=== PATIENT | female | born 1945 | race Caucasian/White ===

== ENCOUNTER 2017-06-19 16:02 | Inpatient (IN) | payer MEDICARE, OTHER ==
[~2017-06-19] VITALS: Ht 167.6 cm; Wt 79.4 kg
[2017-06-19] MEDS ORDERED: PROCHLORPERAZINE EDISYLATE 10 MG/2 ML VIAL IV ONE (16:15)
[2017-06-19] MEDS ORDERED: SIMV20TA6 PO (16:17)
[2017-06-19] MEDS ORDERED: MELO15TA13 PO (16:17)
[2017-06-19] MEDS ORDERED: ESCI10TA PO (16:17)
[2017-06-19] MEDS ORDERED: TRAM50TA2 PO (16:17)
[2017-06-19] MEDS ORDERED: FAMO-132 PO (16:17)
[2017-06-19] MEDS ORDERED: PROCHLORPERAZINE EDISYLATE 10 MG/2 ML VIAL ONE (16:50)
[2017-06-19 16:57] LABS: BASOPHILS % (AUTO) 0.7 % (0.0-2.0); EOSINOPHILS # (AUTO) 0.4 K/uL (0.0-0.7); EOSINOPHILS % (AUTO) 6.2 % (0.0-7.0); HEMATOCRIT 40.2 % (37-47); HEMOGLOBIN 13.1 G/DL (12.0-16.0); LYMPHOCYTES # (AUTO) 2.1 K/UL (0.8-4.8); LYMPHOCYTES % (AUTO) 36.9 % (20.5-51.5); MEAN CORPUSCULAR HEMOGLOBIN 29.4 UUG (27.0-31.0); MEAN CORPUSCULAR HGB CONC 33 g/dL (32.0-37.0); MEAN CORPUSCULAR VOLUME 90.4 FL (81.0-99.0); MONOCYTES # (AUTO) 0.4 K/UL (0.1-1.30); NEUTROPHILS # (AUTO) 2.9 K/UL (1.8-8.9); NEUTROPHILS % (AUTO) 49.2 % (38.5-71.5); PLATELET COUNT (AUTO) 242 K/UL (150-450); RED BLOOD CELL COUNT(AUTO) 4.44 MIL/UL (4.2-5.4); WHITE BLOOD COUNT (AUTO) 5.8 K/UL (4.0-11.2)
[2017-06-19 16:58] LABS: CARBON DIOXIDE 30 mmol/L (21-32); CHLORIDE 101 mmol/L (98-107); CREATININE 0.8 mg/dL (0.6-1.3); GLUCOSE 117 mg/dL (74-106); POTASSIUM 3.8 mmol/L (3.5-5.1); UREA NITROGEN, BLOOD 24 mg/dL (7-18)
[2017-06-19 17:04] LABS: ALANINE AMINOTRANSFERASE 54 U/L (14-59); ALKALINE PHOSPHATASE 44 U/L (50-136); ASPARTATE AMINOTRANSFERASE 36 U/L (15-37); BILIRUBIN,DIRECT 0.1 mg/dL (0.0-0.2); BILIRUBIN,TOTAL 0.4 mg/dL (0.2-1.0); TOTAL PROTEIN, SERUM 7.7 g/dL (6.4-8.2)
--- NOTE | 2017-06-19 17:22 | NUR ---
PATIENT WA SEEN BY FOR C/O RODRIGUEZ. LABS SENT TO LAB. IV PLACED, MEDS GIVEN. AWAITING TEST RESULTS.
--- NOTE | 2017-06-19 17:40 | NUR ---
PATIENT AMBULATED TO BATHROOM IN STEADY GAIT AND WAS ABLE TO VOID URINE.
[2017-06-19] MEDS ORDERED: IV NORMAL SALINE 250 ML IV ONE (17:43)
[2017-06-19] MEDS ORDERED: IOHEXOL 350 100 ML INFUS..BTL ONE (17:43)
[2017-06-19] MEDS ORDERED: NORMAL SALINE FLUSH 10 ML DISP.SYRIN ONE (17:43)
--- NOTE | 2017-06-19 19:10 | NUR ---
report received from dayshift nurse, pt is alert, oriented x 4, no resp distress noted or reported upon assessment...
--- NOTE | 2017-06-19 20:34 | NUR ---
Pt. admitted to Tele , under care of Dr. Beatris Velasco, Belongs List completed, pt is alert, oriented x 4, no resp distress upon transfer assessment...
[2017-06-19 20:49] VITALS: BP 146/93
[2017-06-19] MEDS ORDERED: ACETAMINOPHEN 325 MG TABLET PO PRN (21:30)
[2017-06-19] MEDS ORDERED: TEMAZEPAM 15 MG CAPSULE PO PRN (21:30)
[2017-06-19] MEDS ORDERED: TRAMADOL HCL 50 MG TABLET PO PRN (21:30)
[2017-06-19] MEDS ORDERED: ONDANSETRON 4 MG/2 ML VIAL IV PRN (21:30)
[2017-06-19] MEDS ORDERED: MAGNESIUM HYDROXIDE 30 ML LIQUID UDC PO PRN (21:30)
[2017-06-19] MEDS ORDERED: HYDROCODONE/APAP 5-325MG TABLET PO PRN (21:30)
[2017-06-19] MEDS ORDERED: ASPIRIN EC 325 MG TABLET.DR PO ONE ×2 (22:15→22:40)
[2017-06-19] MEDS ORDERED: ASPIRIN 325 MG TABLET ONE (22:32)
[2017-06-19 23:44] VITALS: BP 126/72
--- NOTE | 2017-06-20 00:27 | NUR ---
RECEIVED PATIENT FROM ED WITH ADMITTING DIAGNOSIS OF TIA. PER PATIENT SHE HAD HEADACHE AND SLURRED SPEECH AT HOME. ALERT AND ORIENTED X4. RN CELENA DID NIHSS AT BEDSIDE SHOWED NO NEUROLOGICAL DEFICIT. NOTED DR. MALLORY FOR ADMISSION. GIVEN ONE DOSE OF ASPIRIN ORDERED. STARTED ON TELE MONITORING SHOWING SR. VS ARE STABLE. ORIENTED PATIENT ABOUT THE ROOM EQUIPMENT. ADVISED ON FALL PRECAUTION. OTHERWISE PATIENT IS SLEEPING AT THIS TIME. WILL CONT TO MONITOR.
[2017-06-20 04:00] VITALS: BP 130/80
--- NOTE | 2017-06-20 05:31 | NUR ---
PATIENT IS SLEEPING COMFORTABLY. NO NEUROLOGIC DEFICIENCY UP TO THIS TIME. VS ARE STABLE BP 130/80.
[2017-06-20 06:03] LABS: BASOPHILS % (AUTO) 0.6 % (0.0-2.0); EOSINOPHILS # (AUTO) 0.4 K/uL (0.0-0.7); EOSINOPHILS % (AUTO) 6.7 % (0.0-7.0); HEMATOCRIT 38.2 % (37-47); HEMOGLOBIN 12.7 G/DL (12.0-16.0); LYMPHOCYTES % (AUTO) 32.2 % (20.5-51.5); MEAN CORPUSCULAR HEMOGLOBIN 30.1 UUG (27.0-31.0); MEAN CORPUSCULAR HGB CONC 33 g/dL (32.0-37.0); MEAN CORPUSCULAR VOLUME 90.4 FL (81.0-99.0); MONOCYTES # (AUTO) 0.5 K/UL (0.1-1.30); MONOCYTES % (AUTO) 7.4 % (0.0-11.0); NEUTROPHILS # (AUTO) 3.2 K/UL (1.8-8.9); NEUTROPHILS % (AUTO) 53.1 % (38.5-71.5); PLATELET COUNT (AUTO) 230 K/UL (150-450); RED BLOOD CELL COUNT(AUTO) 4.23 MIL/UL (4.2-5.4); WHITE BLOOD COUNT (AUTO) 6.2 K/UL (4.0-11.2)
[2017-06-20 06:18] LABS: ALANINE AMINOTRANSFERASE 51 U/L (14-59); ALKALINE PHOSPHATASE 40 U/L (50-136); ASPARTATE AMINOTRANSFERASE 36 U/L (15-37); BILIRUBIN,TOTAL 0.5 mg/dL (0.2-1.0); CARBON DIOXIDE 33 mmol/L (21-32); CHLORIDE 105 mmol/L (98-107); CHOLESTEROL 158 mg/dL (<200); CREATININE 0.6 mg/dL (0.6-1.3); GLUCOSE 105 mg/dL (74-106); HDL CHOLESTEROL 54 mg/dL (40-60); MAGNESIUM 1.9 mg/dL (1.8-2.4); PHOSPHOROUS 4.5 mg/dL (2.5-4.9); POTASSIUM 3.9 mmol/L (3.5-5.1); TOTAL PROTEIN, SERUM 7.1 g/dL (6.4-8.2); TRIGLYCERIDES 95 MG/DL (30-150); UREA NITROGEN, BLOOD 14 mg/dL (7-18)
[2017-06-20 06:51] LABS: THYROID STIMULATING HORMONE 1.836 mIU/mL (0.358-3.740)
[2017-06-20] MEDS ORDERED: ASPIRIN EC 325 MG TABLET.DR PO SCH (09:00)
[2017-06-20] MEDS ORDERED: ESCITALOPRAM OXALATE 10 MG TABLET PO SCH (09:00)
[2017-06-20] MEDS ORDERED: FAMOTIDINE 20 MG TABLET PO SCH (09:00)
[2017-06-20] MEDS ORDERED: DIAZEPAM 5 MG TABLET PO PRN (09:45)
[2017-06-20] MEDS ORDERED: MELOXICAM 7.5 MG TABLET PO SCH (09:47)
--- NOTE | 2017-06-20 11:05 | NUR ---
PT OFF FLOOR, TAKEN TO [facility] FOR MRI. VS STABLE.
[2017-06-20 13:20] VITALS: BP 136/92
--- NOTE | 2017-06-20 13:20 | NUR ---
PT RETURNED TO M/S UNIT, PLACED BACK ON TELE, AND VITAL SIGNS STABLE. PT SITTING UP COMFORTABLY EATING LUNCH. ALL COMFORT AND SAFETY MEASURES PROVIDED. WILL CONTINUE TO MONITOR.
[2017-06-20 15:55] VITALS: BP 111/63
[2017-06-20 16:04] VITALS: BP 111/63
--- NOTE | 2017-06-20 18:59 | NUR ---
PT SITTING COMFORTABLY AWAKE IN BED. V/S WNL AND NO S/S OF DISTRESS NOTED AT THIS TIME. ALL SAFETY MEASURES IMPLEMENTED. CALL LIGHT WITHIN REACH. DISCHARGE ORDERS RECEIVED.
[2017-06-20] MEDS ORDERED: ASPI-618 PO (19:03)
--- NOTE | 2017-06-20 19:30 | NUR ---
PT RECEIVED SITTING AT THE EDGE OF BED. A/OX4. V/S STABLE. IN NO ACUTE DISTRESS. PT DOES NOT C/O PAIN AT THIS TIME. SAFETY MEASURES IMPLEMENTED. CALL LIGHT WITHIN REACH. PT AWAITING DISCHARGE.
[2017-06-20 19:44] VITALS: BP 129/85
[2017-06-20] MEDS ORDERED: SIMVASTATIN 20 MG TABLET PO SCH (21:00)
--- NOTE | 2017-06-20 21:00 | NUR ---
PT IN STABLE CONDITION. IV D/C. D/C INSTRUCTIONS SIGNED. PT PROVIDED WITH D/C INSTRUCTION COPY. BELONGINGS LIST SIGNED.
== END 2017-06-20 21:15 | disposition home or self-care (01) | DRG 69 ==
LOC: ER 16:03 → TELE 20:07
PROVIDERS: ADMIT Internal Medicine; ATTEND Internal Medicine
DX: G45.9 Transient cerebral ischemic attack, unspecified (principal); E86.0 Dehydration; I67.2 Cerebral atherosclerosis; H26.9 Unspecified cataract; E78.5 Hyperlipidemia, unspecified; M19.90 Unspecified osteoarthritis, unspecified site; Z79.899 Other long term (current) drug therapy; E66.9 Obesity, unspecified; Z68.28 Body mass index [BMI] 28.0-28.9, adult; K21.9 Gastro-esophageal reflux disease without esophagitis; F32.9 Major depressive disorder, single episode, unspecified
CPT/HCPCS: 36415; 70030-TC; 70496; 70551; 71010; 83735; 84100; 84443; 85025; 85730; 93005; 93307; 93880; A4663; J3490

== ENCOUNTER 2022-12-21 07:23 | Outpatient (CLI) | payer MEDICARE, OTHER ==
[~2022-12-21 07:23] MED LIST: ASPI-618 PO; ESCI10TA PO; FAMO-132 PO; MELO15TA13 PO; SIMV-46 PO; TRAM50TA2 PO
== END 2022-12-21 23:59 | disposition home or self-care (01) ==
LOC: LAB 07:23
PROVIDERS: ATTEND Obstetrics & Gynecology
DX: Z01.812 Encounter for preprocedural laboratory examination (principal); Z20.822 Contact with and (suspected) exposure to COVID-19

== ENCOUNTER 2022-12-24 09:37 | Day surgery (SDC) | payer MEDICARE, OTHER ==
[2022-12-24 10:21] LABS: *BILIRUBIN,URIN NEGATIVE (NEGATIVE); *CLARITY,URINE CLEAR (CLEAR); *COLOR,URINE YELLOW (YELLOW); *KETONES,URINE NEGATIVE (NEGATIVE); *UROBILINOGEN,URINE 0.2 E.U./dl (NORMAL); LEUKOCYTE ESTERASE ,URINE 1+ (NEGATIVE); NITRITE, URINE NEGATIVE (NEGATIVE); UGLUCOSE NEGATIVE (NEGATIVE)
[2022-12-24 10:21] LABS: HEMATOCRIT 38.6 % (31.2-41.9); MEAN CORPUSCULAR HEMOGLOBIN 30.1 uug (24.7-32.8); MEAN CORPUSCULAR VOLUME 92.3 fL (75.5-95.3); PLATELET COUNT (AUTO) 216 K/uL (179-408)
[2022-12-24 10:25] LABS: *BLOOD, URINE TRACE (NEGATIVE)
[2022-12-24 10:31] LABS: CREATININE 0.7 mg/dL (0.6-1.3)
[2022-12-24 10:53] LABS: BACTERIA,URINE NONE SEEN /HPF (NONE SEEN); RBC,URINE 0-3 /HPF (0-3); SQUAMOUS EPITHELIAL CELL,UR FEW /HPF (NONE SEEN)
[2022-12-24] MEDS ORDERED: FENTANYL CITRATE 100 MCG/2 ML AMPUL ONE (10:56)
[2022-12-24] MEDS ORDERED: LIDOCAINE-MPF 2% 5 ML VIAL ONE (11:00)
[2022-12-24] MEDS ORDERED: CEFAZOLIN 1 G VIAL ONE ×2 (11:00)
[2022-12-24] MEDS ORDERED: ONDANSETRON 4 MG/2 ML VIAL ONE (11:00)
[2022-12-24] MEDS ORDERED: METOCLOPRAMIDE HCL 10 MG/2 ML VIAL ONE (11:00)
[2022-12-24] MEDS ORDERED: GLYCOPYRROLATE 0.2 MG/ML VIAL ONE (11:00)
[2022-12-24] MEDS ORDERED: PROPOFOL 200 MG/20 ML BOTTLE ONE (11:00)
== END 2022-12-24 14:05 | disposition home or self-care (01) ==
LOC: DS 09:37
PROVIDERS: ATTEND Obstetrics & Gynecology
DX: N95.9 Unspecified menopausal and perimenopausal disorder (principal); M19.90 Unspecified osteoarthritis, unspecified site; F41.9 Anxiety disorder, unspecified; F32.9 Major depressive disorder, single episode, unspecified; Z79.82 Long term (current) use of aspirin; Z79.899 Other long term (current) drug therapy; Z98.890 Other specified postprocedural states
CPT/HCPCS: 58558; 80048; 81001; 85025; 85730; 36415; 71045; 87040; 93005; J0690 ×2; J3490 ×2; J2765; J2405; J3010; J7120; A4663